=== PATIENT | female | born 1990 | race African-American/Black ===

== ENCOUNTER 2017-05-15 19:23 | Emergency (ER) | payer MEDICAID ==
[~2017-05-15] VITALS: Ht 160 cm; Wt 52.2 kg
[2017-05-15] MEDS ORDERED: METH4TAB PO (19:46)
[2017-05-15] MEDS ORDERED: OMEP20CA4 PO (19:46)
[2017-05-15] MEDS ORDERED: HYDR-500 PO (19:46)
[2017-05-15] MEDS ORDERED: CLORTRIMAZOLE (19:46)
[2017-05-15] MEDS ORDERED: TRIAMCINOLONE 0.1% (19:46)
[2017-05-15] MEDS ORDERED: LORA-114 PO (19:46)
[2017-05-15] MEDS ORDERED: predniSONE 50 MG TABLET PO ONE (20:15)
[2017-05-15] MEDS ORDERED: predniSONE 50 MG TABLET ONE (20:21)
--- NOTE | 2017-05-15 20:37 | NUR ---
Patient discharged to home in stable conditon. Written and verbal after care instructions given. Patient verbalizes understanding of instructions.
[2017-05-15 20:39] VITALS: BP 139/74
== END 2017-05-15 20:40 | disposition home or self-care (01) ==
LOC: ER 19:23
DX: L53.8 Other specified erythematous conditions (principal); J45.909 Unspecified asthma, uncomplicated
CPT/HCPCS: 99283; A4663; J7512